=== PATIENT | male | born 2000 | race African-American/Black ===

== ENCOUNTER 2024-03-19 13:06 | Emergency (ER) | payer OTHER, SELFPAY ==
[2024-03-19 13:26] VITALS: BP 150/89
--- NOTE | 2024-03-19 14:28 | ED.GENMED ---
History of Present Illness
General
Chief Complaint: Crisis Evaluation
Source: patient
Exam Limitations: none
Time Seen by Provider: 03/19/24 14:10
Nursing documentation reviewed up to this point in time: agreed with
History of Present Illness
History of Present Illness:
23-year-old male presents emergency department after making a comment that he did not want to do do this anymore to his mom. He was on the phone. He denies any thoughts of suicide. He was on the way to work, and would like to go to work.
Past History
Past History
ED Past Medical History: Asthma
ED Past Surgical History: Other (Ear tubes)
Social History
Tobacco: Non-smoker
Alcohol: None
Drug: Marijuana
Living: with family
Employment: Employed
Review of Systems
Review of Systems
Allergies reviewed?: Yes
All Other Systems: Not applicable
Constitutional: Reports no symptoms
EENT: Reports no symptoms
Respiratory: Reports no symptoms
Cardiac: Reports no symptoms
ABD/GI: Reports no symptoms
: Reports no symptoms
Musculoskeletal: Reports no symptoms
Skin: Reports no symptoms
Neurological: Reports no symptoms
Endocrine: Reports no symptoms
Hematologic/Lymphatic: Reports no symptoms
Psychiatric: Reports no symptoms; Denies depression or suicidal
Phy Exam
Physical Exam
Physical Exam:
Physical Exam
General: no apparent distress, not acutely ill
Neck: supple. no meningeal signs. normal posterior pharynx
Heart: s1/s2 regular rate and rhythm, no murmur. equal radial
pulses.
HEENT: EOMI
Lungs: no acute respiratory distress. clear bilaterally
Abdomen: normal bowel sounds. not tender. no CVAT
Neuro: alert and oriented. no focal neurological deficits cranial nerves II through XII intact
Skin: no rash
Psychiatric: well kept. interactive and cooperative
Extremities: no edema. no calf tenderness. negative homans. good distal pulses
Course
Vital Signs
Initial and Last Documented VS:
Initial Vital Signs
Temp Pulse Resp BP Pulse Ox
98.8 F 102 16 150/89 100
03/19/24 13:26 03/19/24 13:26 03/19/24 13:26 03/19/24 13:26 03/19/24 13:26
Last Documented Vital Signs
Temp Pulse Resp BP Pulse Ox
98.8 F 102 16 150/89 100
03/19/24 13:26 03/19/24 13:26 03/19/24 13:26 03/19/24 13:26 03/19/24 13:26
MDM/Problems Addressed
Differential Diagnosis Includes:
Suicidal ideation, depression
MDM/Problems Addressed:
23-year-old male with no concern for suicidal or homicidal ideation. Stable for discharge. Patient was seen by psychiatry, Dr. Morin, who cleared him from his 302.
*Critical Care Note
Total Time (30-74mins, 75-104mins- exclusive of procedures): Not Applicable
Patient Management
Social determinants of health affecting care: Living situation
Discussion with other providers: [employer] (Psychiatry, Dr. Renteria, recommends discharge. Cancel 302)
Escalation/DeEscalation of care consider admission/obs:
Admission/transfer not indicated
ED Attending Note
-
Portions of this chart may have been created with voice recognition software.� Occasional wrong word or��sound alike� substitutions may have occurred due to the inherent limitations of voice recognition software.
Discharge Plan
Departure
Patient Disposition: Home (Routine Discharge)
Date of Disposition: 03/19/24
Time of Disposition: 14:31
Patient with high blood pressure during this ER visit?: Yes
Condition: Good
Discharge Problem:
Adjustment disorder
Instructions: BLOOD PRESSURE
Prescriptions:
No Action
albuterol sulfate 2.5 MG/3 ML solution for nebulization
2.5 mg inhalation R Q4HPRN PRN (Reason: asthma)
ondansetron 4 MG tablet,disintegrating
4 mg PO TIDPRN PRN (Reason: nausea/vomiting) Qty: 9 0RF
Referrals:
UNKNOWN,NO INTERVIEW [Family Provider] -
Activity Restrictions/Additional Instructions:
Return for any concerns. Follow-up with primary care.
Interventions
Interventions:
*Risk Screen - Suicide Last Done: 03/19/24 13:26
*General Assessment Last Done: 03/19/24 13:26
*Neglect/Abuse Screening Last Done: 03/19/24 13:26
ED- Fall Risk Assessment Last Done: 03/19/24 13:26
*ED COVID-19 Vaccine History Last Done: 03/19/24 13:26
ED-Psychological Assessment Last Done: 03/19/24 13:30
Discharge Date and Time
Print Language: BERMUDIAN
--- NOTE | 2024-03-19 14:43 | EDRN ---
Reviewed discharge instructions with patient. Verbalized understanding. Ambulated with steady gait to the lobby.
== END 2024-03-19 14:45 | disposition home or self-care (01) ==
LOC: EMR 13:06
PROVIDERS: EMERGENCY PHYSICIAN Emergency Medicine
DX: F43.20 Adjustment disorder, unspecified (principal); J45.909 Unspecified asthma, uncomplicated
CPT/HCPCS: 99282